=== PATIENT | male | born 1995 | race African-American/Black ===

== ENCOUNTER 2019-01-10 05:55 | Emergency (ER) | payer SELFPAY ==
[2019-01-10] MEDS ORDERED: Famotidine In NaCl 20 mg/50 ml Premix Bag ONE ×2 (06:30→06:51)
[2019-01-10] MEDS ORDERED: Glycopyrrolate 0.4 MG/ 2 ML VIAL ONE ×2 (06:30→06:51)
[2019-01-10] MEDS ORDERED: Ondansetron PF 4 MG/2 ML Vial ONE ×2 (06:30→06:51)
[2019-01-10 07:08] LABS: #Basophils 0.1 thou/uL (0.0-0.2); #Eosinphils 0.2 thou/uL (0.0-0.7); #Monocytes 0.6 thou/uL (0.11-0.59); #Neutrophils 4.1 thou/uL (1.40-6.50); %Basophils 2.3 % (0.0-1.0); %Eosinophils 3.2 % (0.0-10.0); %Lymphocytes 16.2 % (21.0-51.0); %Monocytes 10.7 % (0.0-10.0); %Neutrophils 67.6 % (42.0-75.0); Hemoglobin 15.6 g/dL (14.0-18.0); Mean Corpuscular HGB CONC 33.5 g/dL (32.0-36.0); Mean Corpuscular Hemoglobin 29.4 pg (27.0-31.0); Mean Corpuscular Volume 87.8 fL (78.0-98.0); Mean Platelet Volume 8.2 fL (7.4-10.4); Platelet Count 187 thou/uL (130-400); RBC Distribution Width 10.9 % (11.5-14.5); Red Blood Cell (RBC) Count 5.31 mill/uL (4.70-6.10)
[2019-01-10 07:10] LABS: ALT (SGPT) 31 U/L (8-55); AST (SGOT) 31 U/L (5-34); Albumin 4.5 g/dL (3.5-5.0); Alkaline Phosphatase 72 U/L (40-150); Anion Gap 16 mmol/L (10-20); BUN (Urea Nitrogen) 15 mg/dL (8.9-20.6); Bilirubin, Total 1.7 mg/dL (0.2-1.2); Calc. Creatinine Clearance 0 mL/min (70-130); Calcium 9.3 mg/dL (7.8-10.44); Carbon Dioxide 21 mmol/L (22-29); Chloride 103 mmol/L (98-107); Estimated GFR-MDRD Greater than 90; Globulin 2.8 g/dL (2.4-3.5); Glucose 112 mg/dL (70-105); Lipase 17 U/L (8-78); Potassium 3.3 mmol/L (3.5-5.1); Protein, Total 7.3 g/dL (6.0-8.3); Sodium 137 mmol/L (136-145)
== END 2019-01-10 08:36 | disposition home or self-care (01) ==
LOC: BURERS 05:55
DX: R11.2 Nausea with vomiting, unspecified (principal); R19.7 Diarrhea, unspecified
CPT/HCPCS: 36415; 80053; 83690; 85025; 96365; 96375; J2405

== ENCOUNTER 2019-11-28 11:34 | Emergency (ER) | payer SELFPAY ==
[2019-11-28] MEDS ORDERED: Tetracaine 0.5% OPHTH SOLN/PF 4 ML BOT ONE (11:41)
[2019-11-28] MEDS ORDERED: Fluorescein Opthalmic Strip ONE (11:41)
[2019-11-28] MEDS ORDERED: Adacel (T-DAP) 0.5 ML SYRINGE ONE (11:56)
== END 2019-11-28 12:00 | disposition home or self-care (01) ==
LOC: BURERS 11:34
DX: S05.01XA Injury of conjunctiva and corneal abrasion without foreign body, right eye, initial encounter (principal); Z23 Encounter for immunization; W22.8XXA Striking against or struck by other objects, initial encounter
CPT/HCPCS: 90471; 90715

== ENCOUNTER 2024-06-17 13:01 | Emergency (ER) | payer OTHER ==
[2024-06-17] MEDS ORDERED: Ketorolac Tromethamine 30 MG (1 mL) VIAL ONE (13:38)
== END 2024-06-17 13:48 | disposition home or self-care (01) ==
LOC: BURERS 13:01
DX: R07.2 Precordial pain (principal); R07.81 Pleurodynia; R05.9 Cough, unspecified
CPT/HCPCS: 71045; 93005; 96372; J1885